=== PATIENT | male | born 1965 | race Caucasian/White ===

== ENCOUNTER 2017-10-07 14:20 | Emergency (ER) | payer MEDICAID ==
[2014-01-19 11:52] VITALS: BMI 34.3
[~2017-10-07 14:20] MED LIST: AMBIEN10 MG PO; CELEXA40 MG PO; LASIX20 MG PO; LOTENSIN20 MG PO; NORVASC10 MG PO; PRILOSEC20 MG PO; SUBOXONE 8 M1 TAB.SL SL; ZOCOR20 MG PO
[2017-10-07 14:51] LABS: BASOPHILS 0.5 % (0-2); EOSINOPHILS 0.6 % (0-7); HEMATOCRIT 42.6 % (42.0-54.0); HEMOGLOBIN 13.7 g/dL (13.5-17.5); IMMATURE GRANULOCYTES 0.6 % (0-5); LYMPHOCYTES 12.6 % (15-50); MCH 29.2 pg (26.0-34.0); MCHC 32.2 g/dL (31.0-37.0); MCV 90.8 fL (80.0-100.0); MONOCYTES 5.2 % (2-11); NEUTROPHILS 80.5 % (40-80); PLATELET COUNT 429 10x3/uL (130-400); RBC 4.69 10x6/uL (4.20-6.10); RDW 14.5 % (11.5-14.5); WBC 10.4 10x3/uL (4.8-10.8)
[2017-10-07 15:55] LABS: ALBUMIN 4.2 g/dL (3.4-5.0); ALKALINE PHOSPHATASE 114 U/L (46-116); ALT (SGPT) 26 U/L (10-68); CALC OSMOLALITY 286 mosm/kg (275-300); CALCIUM 9.2 mg/dL (8.5-10.1); CARBON DIOXIDE 27.8 mmol/L (21.0-32.0); CHLORIDE - SERUM 105 mmol/L (98-107); CREATININE - SERUM 0.8 mg/dL (0.6-1.3); GLUCOSE 118 mg/dL (74-106); POTASSIUM - SERUM 4.6 mmol/L (3.5-5.1); PROTEIN - SERUM 6.9 g/dL (6.4-8.2); SODIUM 142 mmol/L (136-145); UREA NITROGEN 21 mg/dL (7-18); eGFR NON AFRICAN AMERICAN > 90 mL/min (90-120)
[2017-10-07 16:01] LABS: CKMB 3.2 U/L (0.0-3.6); CREATINE KINASE 108 UL (21-232)
[2017-10-07 16:12] LABS: TROPONIN-I < 0.017 ng/mL (0.000-0.060)
== END 2017-10-07 18:05 | disposition home or self-care (01) ==
LOC: D.ER 14:20
PROVIDERS: Emergency Medicine
DX: R07.9 Chest pain, unspecified (principal); I10 Essential (primary) hypertension; K22.70 Barrett's esophagus without dysplasia

== ENCOUNTER 2017-11-02 19:55 | Emergency (ER) | payer MEDICAID ==
[2014-01-19 11:52] VITALS: BMI 34.3
== END 2017-11-02 21:10 | disposition home or self-care (01) ==
LOC: D.ER 19:55
DX: S93.601A Unspecified sprain of right foot, initial encounter (principal); X58.XXXA Exposure to other specified factors, initial encounter; Y93.89 Activity, other specified; Y92.89 Other specified places as the place of occurrence of the external cause; I10 Essential (primary) hypertension

== ENCOUNTER → 2017-11-04 13:17 | Outpatient (CLI) | payer MEDICAID ==
[2014-01-19 11:52] VITALS: BMI 34.3
== END | disposition home or self-care (01) ==
LOC: D.NM 13:00 → D.MRI 15:00
DX: M25.562 Pain in left knee (principal)

== ENCOUNTER → 2017-11-07 13:28 | Outpatient (CLI) | payer MEDICAID ==
[2014-01-19 11:52] VITALS: BMI 34.3
== END | disposition home or self-care (01) ==
LOC: D.US 13:28
DX: M79.662 Pain in left lower leg (principal); R22.42 Localized swelling, mass and lump, left lower limb

== ENCOUNTER → 2017-11-14 09:52 | Outpatient (CLI) | payer MEDICAID ==
[2014-01-19 11:52] VITALS: BMI 34.3
--- NOTE | 2017-11-27 15:46 | EC ---
PATIENT:RYANNE PANDYA DATE OF SERVICE: 11/14/17 SEX: M MEDICAL RECORD: [id number] DATE OF : 65 LOCATION:[facility] AGE OF PATIENT: 52 ADMISSION DATE: 11/14/17 REFERRING PHYSICIAN: INTERPRETING PHYSICIAN: OSBALDO RETANA MD ECHOCARDIOGRAM REPORT ECHO CHARGES 4 ECHO COMPLETE CLINICAL DIAGNOSIS: CHEST PAIN/ANGINA ECHOCARDIOGRAPHIC MEASUREMENTS (adult normal given) AC root (d.<3.7cm) 4.0 cm LV Septum d (<1.2 cm> 1.5 cm Valve Excursion 1.7 cm LV Septum (systole) 1.8 cm Left Atria (s.<4.0cm> 4.0 cm LVPW d(<1.2cm) 1.7 cm RV (d.<2.3cm) 4.3 cm LVPW (sytole) 1.8 cm LV diastole(<5.6CM) 5.7 cm MV E-F(>70mm/sec) cm LV systole 4.6 cm LVOT Diameter 1.8 cm MV exc.(>10mm) cm Est.ejection fraction (50-75%) % Pericardial Effusion N DOPPLER: LVIT cm/sec A 100 cm/sec E 113 cm/sec LA cm/sec RVSP 36 mmHg LVOT 152 cm/sec AOP1/2T m/s Asc. Ao 180 cm/sec RVOT cm/sec RA cm/sec PA 134 cm/sec AV Gradient Peak 12.98mmHg AV Mean 7.74 mmHg AV Area 2.0 cm MV Gradient Peak 5.12 mmHg MV Mean 2.70 mmHg MV Area cm COMMENTS: Lmsw: Stella RAPHAEL Fitness Supervisor: 3 Dr. Cedillo TAPE# PACS DATE OF SERVICE: 11/14/2017 ECHOCARDIOGRAM DATE OF SERVICE: 11/14/2017 FINDINGS: 1. Left ventricle chamber size is within normal limits. Left ventricular systolic function is normal. Overall ejection fraction estimated at 60%. 2. Left atrium is enlarged at 4.0 cm. Right atrium and right ventricular ECHOCARDIOGRAM REPORT [id number] RYANNE PANDYA chamber sizes are as well mildly dilated. 3. Valvular structures have normal structure and motion. 4. Doppler interrogation reveals mild mitral regurgitation, mild tricuspid regurgitation, no other valvular insufficiency or stenosis. Pulmonary systolic pressure is normal estimated 36 mmHg. 5. No evidence of pericardial effusion or left ventricular thrombus. TRANSINT:[id number] Voice Confirmation ID: [id number] DOCUMENT ID: [id number] OSBALDO RETANA MD at 1546 CC: [id number] DICTATION DATE: 11/14/17 1554 REHABILITATION PHYSICIAN: 11/14/17 1621 [facility]P CLI 11/14/17 [id number] [place] [address]
--- NOTE | 2017-11-27 15:46 | ST ---
PATIENT:RYANNE PANDYA MEDICAL RECORD: [id number] SEX: M LOCATION:[facility] ORDER #: ADMISSION DATE: 11/14/17 AGE OF PATIENT: 52 REFERRING PHYSICIAN: INTERPRETING PHYSICIAN: OSBALDO RETANA MD DATE OF SERVICE: 11/14/2017 PROCEDURE: Nuclear stress test. INDICATION: Chest pain of unknown etiology. He was exercised on standard Lexiscan protocol with 29.0 mCi injected at peak stress, 12.2 mCi were injected previously for rest images. FINDINGS: Gated SPECT reveals a preserved ejection fraction greater than 60% with good wall motion and thickening and brightening throughout all segments. SPECT IMAGING: Sestamibi was used as a myocardial perfusion agent. There was homogeneous uptake throughout all segments with no evidence of inducible ischemia or previous infarction. OVERALL IMPRESSION: 1. This is a normal nuclear stress test with no evidence of inducible ischemia or previous infarction. 2. Gated SPECT reveals a preserved ejection fraction greater than 60%. In this patient with ongoing symptomatology, the current scan does not suggest the presence of hemodynamically significant coronary disease. Evaluate noncardiac etiology of chest pain. TRANSINT:[id number] Voice Confirmation ID: [id number] DOCUMENT ID: [id number] OSBALDO RETANA MD at 1546 CC: [id number] DICTATION DATE: 11/15/17 1332 INDUSTRIAL PSYCHOLOGY TEACHER: 11/16/17 0025 DEP CLI 11/14/17 [id number] [place] [address]
== END | disposition home or self-care (01) ==
LOC: D.ECHO 09:52 → D.NM 11:00
DX: I20.9 Angina pectoris, unspecified (principal); R06.02 Shortness of breath

== ENCOUNTER 2017-12-28 16:28 | Emergency (ER) | payer MEDICAID ==
[2014-01-19 11:52] VITALS: BMI 34.3
[2017-12-28 17:48] LABS: APPEARANCE CLEAR (CLEAR); BILIRUBIN NEGATIVE (NEGATIVE); COLOR DK YELLOW (YELLOW); GLUCOSE NEGATIVE (NEGATIVE); KETONE NEGATIVE (NEGATIVE); NITRITE NEGATIVE (NEGATIVE); PROTEIN NEGATIVE (NEGATIVE); UROBILINOGEN NORMAL (NORMAL)
== END 2017-12-28 19:35 | disposition home or self-care (01) ==
LOC: D.ER 16:28
PROVIDERS: Family Medicine
DX: M54.5 Low back pain (principal); I10 Essential (primary) hypertension

== ENCOUNTER 2018-03-21 07:26 | Day surgery (SDC) | payer MEDICAID ==
[2018-03-20 10:59] LABS: HEMATOCRIT 44.7 % (42.0-54.0); HEMOGLOBIN 14.5 g/dL (13.5-17.5); MCH 28.8 pg (26.0-34.0); MCHC 32.4 g/dL (31.0-37.0); MCV 88.9 fL (80.0-100.0); MEAN PLATELET VOLUME 10.3 fL (7.4-10.4); RBC 5.03 10x6/uL (4.20-6.10); WBC 8.3 10x3/uL (4.8-10.8)
[2018-03-20 11:09] LABS: CALC OSMOLALITY 281 mosm/kg (275-300); CALCIUM 8.5 mg/dL (8.5-10.1); CARBON DIOXIDE 27.6 mmol/L (21.0-32.0); CHLORIDE - SERUM 106 mmol/L (98-107); GLUCOSE 93 mg/dL (74-106); POTASSIUM - SERUM 4.3 mmol/L (3.5-5.1); SODIUM 141 mmol/L (136-145); UREA NITROGEN 15 mg/dL (7-18); eGFR NON AFRICAN AMERICAN 83 mL/min (90-120)
[~2018-03-21] VITALS: Ht 185.4 cm; Wt 142.0 kg
--- NOTE | ~2018-03-21 | OP ---
PATIENT NAME: RYANNE PANDYA MEDICAL RECORD: [id number] :65 LOCATION:[facility] ADMISSION DATE: SURGEON: EDI LOVETT DATE OF OPERATION: 03/21/2018 SURGEON: Edi Lovett DPM. PREOPERATIVE DIAGNOSES: 1. Tailor's bunion, right foot. 2. Hammertoe, second toe, right foot. POSTOPERATIVE DIAGNOSES: 1. Tailor's bunion, right foot. 2. Hammertoe, second toe, right foot. PROCEDURES: 1. Tailor's bunionectomy (fifth metatarsal osteotomy) right foot. 2. Arthrodesis second toe, right foot. ANESTHESIA: General. HEMOSTASIS: Pneumatic ankle tourniquet inflated to 250 mmHg. ESTIMATED BLOOD LOSS: Minimal. MATERIALS: One 14 mm 2.0 cannulated [employer] screw and one 0.062 inch K-wire. INJECTABLES: A 20 cc of 0.5% bupivacaine plain. The patient has longstanding history of pain associated with the above-mentioned deformities. He has tried wider shoes to no avail. He is here today for surgical correction of both second toe, right foot and the Tailor's bunion, right foot. We have discussed the proposed procedures. Risks and benefits were reviewed. Complications were discussed. All questions were answered. He was consented for the above-mentioned procedures. DESCRIPTION OF PROCEDURE: The patient was brought in the operating room and placed on the operating table in supine position. A timeout was called with Dr. Lovett, who identified the patient, the surgical site, and the surgeries to be performed. Once appropriate anesthesia was obtained, the foot was prepped and draped in the usual aseptic manner. The pneumatic ankle tourniquet was inflated to 250 mmHg on the well-padded right ankle. PROCEDURE NUMBER 1: Tailor's bunionectomy, right foot. Attention was directed to the dorsolateral aspect of the right foot where a 5-cm linear incision made. This incision was carried deep to soft tissue with care being taken to retract all vital and neurovascular structures. All bleeders were cauterized along the way. The periosteum was then reflected from the fifth metatarsophalangeal joint, thus exposing the hypertrophied lateral eminence. Utilizing a sagittal saw, the hypertrophied lateral eminence was resected. The plantar surface of the condyle was also planed with a sagittal saw. Next, utilizing the sagittal saw, an osteotomy was created in the head of the fifth metatarsal. This OPERATIVE REPORT [id number] RYANNE PANDYA osteotomy was through and through and was oriented from dorsal proximal to plantar distal. The capital fragment was then moved over laterally and temporary fixation was gained with a K-wire and a bone clamp. Next, utilizing manufacture's recommended technique, one 14-mm screw was placed across the osteotomy. All remaining bone over hanging bone from the lateral aspect of the fifth metatarsal shaft was removed with a rongeur and sagittal saw. The surgical site was then irrigated with copious amounts of normal sterile saline via bulb syringe. The periosteum was reapproximated and coapted utilizing 3-0 Vicryl. The subQ was reapproximated and coapted using 4-0 Vicryl. The skin was reapproximated and coapted using 4-0 nylon. PROCEDURE NUMBER 2: Arthrodesis second toe, right foot. Attention was directed to the dorsal aspect of the second toe of the right foot where a 4-cm linear incision was made. This incision was carried deep through soft tissue with care being taken to retract all vital and neurovascular structures. All bleeders were cauterized along the way. Next, the extensor tendon was transected from medial to lateral at the level of the proximal interphalangeal joint. The extensor tendon was then dissected away from the dorsal aspect of the proximal phalanx to the level of the metatarsophalangeal joint. Utilizing sharp dissection, a capsulotomy was performed of the medial, lateral, and dorsal aspect of the second metatarsophalangeal joint. Attention was then redirected to the head of the proximal phalanx. The head of the proximal phalanx was resected with a sagittal saw. All cartilage was removed from the base of the middle phalanx. Next, one 0.062 inch K-wire was drilled through the middle phalanx exiting the toe. The pin was then retrograded back into the proximal phalanx and into the head of the second metatarsal. Surgical site was then irrigated with copious amounts of normal sterile saline via bulb syringe. The extensor tendon was then reapproximated and coapted utilizing 3-0 Vicryl. The subQ was then reapproximated and coapted utilizing 3-0 Vicryl. The skin was then reapproximated and coapted utilizing 4-0 nylon. A dressing consisting of Xeroform, 4 x 4's, Kerlix, and [place] bandage was applied to the right foot. The pneumatic ankle tourniquet was deflated and cap refill time is immediate to all digits of the right foot. The patient tolerated the procedure and anesthesia well. He left the operating with vital signs stable and capillary refill time intact. The patient will be discharged home with instructions to ice and elevate the right foot. He was dispensed a boot to help further offload the foot. He was provided with prescriptions for both hydrocodone and [place] 5/325. There were no complications with this procedure. He has my cell phone number for any after hour difficulties and we will follow up with him next week. TRANSINT:[id number] Voice Confirmation ID: [id number] DOCUMENT ID: [id number] OPERATIVE REPORT [id number] RYANNE PANDYA DAVID J at 1200 CC: [id number] DICTATION DATE: 03/21/18 1227 NUCLEAR MEDICINE OFFICER: 03/21/18 1321 [facility] 03/21/18 [facility] [address] [place] [address]
[2018-03-21 06:44] VITALS: BP 166/96; Ht 185.4 cm; Wt 142.0 kg
[~2018-03-21 07:26] MED LIST changes: +ENDOCET 10-3251 TAB PO; +FLOMAX0.4 MG PO; +VITAMIN D250000 UNIT
[2018-03-21] MEDS ORDERED: OXYCODONE HCL5 MG PO (09:54)
== END 2018-03-21 13:50 | disposition home or self-care (01) ==
LOC: D.OPS 07:26 → D.PAN 11:30 → D.OPS 11:30
PROVIDERS: Anesthesiology
DX: K80.10 Calculus of gallbladder with chronic cholecystitis without obstruction (principal); M21.621 Bunionette of right foot; M20.41 Other hammer toe(s) (acquired), right foot; Z01.812 Encounter for preprocedural laboratory examination

== ENCOUNTER 2018-04-23 06:45 | Day surgery (SDC) | payer MEDICAID ==
[2018-04-22 14:41] LABS: HEMATOCRIT 44.5 % (42.0-54.0); MCH 29.6 pg (26.0-34.0); MCHC 33.7 g/dL (31.0-37.0); MCV 87.8 fL (80.0-100.0); RBC 5.07 10x6/uL (4.20-6.10); RDW 17.7 % (11.5-14.5); WBC 10.9 10x3/uL (4.8-10.8)
[2018-04-22 14:53] LABS: CALC OSMOLALITY 281 mosm/kg (275-300); CALCIUM 8.9 mg/dL (8.5-10.1); CARBON DIOXIDE 25.5 mmol/L (21.0-32.0); CHLORIDE - SERUM 107 mmol/L (98-107); GLUCOSE 104 mg/dL (74-106); POTASSIUM - SERUM 4.2 mmol/L (3.5-5.1); SODIUM 140 mmol/L (136-145); UREA NITROGEN 22 mg/dL (7-18); eGFR NON AFRICAN AMERICAN 83 mL/min (90-120)
[~2018-04-23] VITALS: Ht 185.4 cm; Wt 131.5 kg
--- NOTE | ~2018-04-23 | OP ---
PATIENT NAME: RYANNE PANDYA MEDICAL RECORD: [id number] :65 LOCATION:[facility] ADMISSION DATE: SURGEON: SHERLY PRITCHETT MD DATE OF OPERATION: 04/23/2018 SURGEON: Sherly Pritchett MD PREOPERATIVE DIAGNOSIS: Epidermoid cyst of the left forearm. POSTOPERATIVE DIAGNOSIS: Epidermoid cyst of the left forearm. PROCEDURE PERFORMED: Excisional biopsy of left elbow cyst 4 x 4 x 4 cm. ANESTHESIA: General. COMPLICATIONS: None. SPECIMENS: Epidermoid cyst. Case was clean. ESTIMATED BLOOD LOSS: 10 cc. OPERATIVE COURSE: After consent was obtained, the patient was taken to the operating room and placed in supine position on the operating table. Next, general anesthesia was given via endotracheal intubation after a timeout was performed to confirm the correct patient and procedure. Left elbow was prepped and draped in typical sterile fashion. A 20 cc of local anesthetic were injected circumferentially for pain control. Incision was made with a 15 blade scalpel. Dissection through the dermis continued with a 15 blade scalpel as well as Metzenbaum scissors. The cyst was circumferentially dissected sharply using Metzenbaum scissors. It was excised whole and sent for permanent pathology. The wound was then irrigated. Hemostasis obtained with electrocautery. The wound was closed in 2 layers. Deep layer was closed with 3-0 Vicryl suture. The skin was closed with 2-0 nylon vertical mattress interrupted suture and with sterile dressing was placed. At the end of the case, all needle and instrument counts were correct. No complications occurred. The patient extubated and transferred to the PACU in stable condition. TRANSINT:[id number] Voice Confirmation ID: [id number] DOCUMENT ID: [id number] SHERLY PRITCHETT MD at 1316 CC: [id number] DICTATION DATE: 04/23/18 0944 DIRECTOR OF COUNTERINTELLIGENCE: 04/23/18 1235 [facility] 04/23/[address] [address]
[~2018-04-23 06:45] MED LIST changes: +OXYCODONE HCL5 MG PO
[2018-04-23 07:28] VITALS: Ht 185.4 cm; Wt 131.5 kg
[2018-04-23] MEDS ORDERED: ULTRAM50 MG PO (09:40)
== END 2018-04-23 11:50 | disposition home or self-care (01) ==
LOC: D.OPS 06:45 → D.PAN 08:45 → D.OPS 09:25 → D.PAN 11:00 → D.OPS 11:00
PROVIDERS: Anesthesiology
DX: L72.0 Epidermal cyst (principal); Z01.812 Encounter for preprocedural laboratory examination

== ENCOUNTER → 2018-07-24 12:17 | Outpatient (CLI) | payer MEDICAID ==
[2018-04-23 07:28] VITALS: BMI 38.3
[~2018-07-24 12:17] MED LIST changes: +ULTRAM50 MG PO
== END | disposition home or self-care (01) ==
LOC: D.MRI 12:17
DX: M47.14 Other spondylosis with myelopathy, thoracic region (principal)

== ENCOUNTER → 2019-04-10 13:13 | Outpatient (CLI) | payer MEDICAID ==
[2018-04-23 07:28] VITALS: BMI 38.3
--- NOTE | 2019-04-14 12:26 | EC ---
PATIENT:RYANNE PANDYA DATE OF SERVICE: 04/10/19 SEX: M MEDICAL RECORD: [id number] DATE OF : 65 [facility] AGE OF PATIENT: 53 ADMISSION DATE: 04/10/19 REFERRING PHYSICIAN: INTERPRETING PHYSICIAN: WAYNE BEJARANO MD ECHOCARDIOGRAM REPORT ECHO CHARGES 4 ECHO COMPLETE Date: 04/10/19 CLINICAL DIAGNOSIS: HTH, CHEST PAIN, DYSPNEA WITH EXERTION ECHOCARDIOGRAPHIC MEASUREMENTS (adult normal given) AC root (d.<3.7cm) 3.3 cm LV Septum d (<1.2 cm> 1.2 cm Valve Excursion 1.6 cm LV Septum (systole) 1.5 cm Left Atria (s.<4.0cm> 4.3 cm LVPW d(<1.2cm) 1.8 cm RV (d.<2.3cm) 4.5 cm LVPW (sytole) 1.9 cm LV diastole(<5.6CM) 5.78 cm MV E-F(>70mm/sec) cm LV systole 4.0 cm LVOT Diameter 2.1 cm MV exc.(>10mm) 0.90 cm Est.ejection fraction (50-75%) % DOPPLER: LVIT cm/sec A 103 cm/sec E 64.0 cm/sec LA cm/sec RVSP 21 mmHg LVOT 120 cm/sec AOP1/2T m/s Asc. Ao 151 cm/sec RVOT 101 cm/sec RA cm/sec PA 119 cm/sec AV Gradient Peak 9.17 mmHg AV Mean 4.84 mmHg AV Area 3.1 cm MV Gradient Peak 4.19 mmHg MV Mean 1.61 mmHg MV Area cm COMMENTS: Manager Integrated: 2 SHERRY RAPHAEL Retort Operator: 3 Dr. Cedillo TAPE# PACS Pericardial Effusion N DATE OF SERVICE: Adequate 2-D, color-flow and spectral Doppler, and M-mode. Borderline LVH. LV internal dimensions are normal. Wall motion is normal. EF is greater than or equal to 55%. Aortic valve is sclerotic. There is no evidence of stenosis by Doppler interrogation. Left atrium is normal at 4.3 cm. Mitral valve shows no prolapse. Trace MR. Right-sided chambers grossly normal. Mild TR. ECHOCARDIOGRAM REPORT [id number] RYANNE PANDYA TRANSINT:[id number] Voice Confirmation ID: [id number] DOCUMENT ID: [id number] WAYNE BEJARANO MD at 1226 CC: [id number] DICTATION DATE: 04/13/19 1454 MEDIA LAW FACULTY MEMBER: 04/13/19 1639 [facility] CLI 04/10/19 [id number] [id number]
== END | disposition home or self-care (01) ==
LOC: D.HCCARDIO 13:13
PROVIDERS: ATTEND Internal Medicine Interventional Cardiology
DX: I20.9 Angina pectoris, unspecified (principal)

== ENCOUNTER → 2019-04-13 12:33 | Outpatient (CLI) | payer MEDICAID ==
[2018-04-23 07:28] VITALS: BMI 38.3
== END | disposition home or self-care (01) ==
LOC: D.US 12:33
PROVIDERS: ATTEND Internal Medicine Interventional Cardiology
DX: M79.605 Pain in left leg (principal); M79.604 Pain in right leg

== ENCOUNTER → 2019-04-14 09:09 | Outpatient (CLI) | payer MEDICAID ==
[2018-04-23 07:28] VITALS: BMI 38.3
== END | disposition home or self-care (01) ==
LOC: D.HCCARDIO 09:09
PROVIDERS: ATTEND Internal Medicine Cardiovascular Disease
DX: R07.9 Chest pain, unspecified (principal)

== ENCOUNTER 2019-04-30 11:34 | Outpatient (CLI) | payer MEDICAID | END 2019-04-30 16:25 | disposition home or self-care (01) | LOC: D.CATH 11:34 | DX: I25.10 Atherosclerotic heart disease of native coronary artery without angina pectoris (principal); F17.200 Nicotine dependence, unspecified, uncomplicated; I10 Essential (primary) hypertension; R00.0 Tachycardia, unspecified; R06.09 Other forms of dyspnea; M79.604 Pain in right leg ==